=== PATIENT | female | born 1985 | race Caucasian/White ===

== ENCOUNTER 2024-10-11 05:52 | Inpatient (IN) ==
[~2024-10-11 05:52] MED LIST: Acetaminophen IV 1 GM/100ML 1,000 MG/100 ML BAG IV ONE; Bupivacaine 0.25% SDV 30 ML ONE; Gentamicin ADULT 40 MG/ML VIAL (2 ML VIAL = 80 MG) ONE; NS 0.45% 1000 ml BAG 1,000 ML IV SCH; Naloxone 0.4 mg VIAL 0.4 mg/ml 1 ml VIAL IV PRN; Ondansetron 4 mg VIAL 2 MG/ML 2 ml VIAL IV PRN; Povidone Iodine 5% OPTH 30 ML BTL ONE; ceFAZolin VIAL VIAL ONE
[2024-10-11] MEDS ORDERED: Heparin 5000 UNITS/ML 1 mL VIAL ONE ×2 (06:17→15:05)
[2024-10-11] MEDS ORDERED: Lidocaine 2.5%/Prilocain 2.5% 5 GM TUBE ONE (06:17)
[2024-10-11] MEDS ORDERED: Scopolamine 1 mg/72hr PATCH ONE (06:17)
[2024-10-11] MEDS ORDERED: Clindamycin 900 MG/50 **NS BAG 900 MG/50 ML BAG ONE (06:18)
[2024-10-11] MEDS: Scopolamine 1 mg/72hr PATCH TRANSDERM ONE (06:39)
[2024-10-11] MEDS: Lactated Ringers 1000 ml BAG 1,000 ML IV SCH (06:40)
[2024-10-11] MEDS: Buffered Lidocaine 1% SYRIN 1 ml INTRADERM ONE (06:40)
[2024-10-11 06:46] LABS: Rapid COVID-19 Molecular Undetected (Undetected)
[2024-10-11] MEDS ORDERED: Lidocaine 2% PF 5 ML VIAL ONE (06:56)
[2024-10-11] MEDS ORDERED: Propofol 10 MG/ML 20 ML BTL ONE ×3 (06:56→11:14)
[2024-10-11] MEDS ORDERED: Sevoflurane BOTTLE ONE ×2 (06:56→06:57)
[2024-10-11] MEDS ORDERED: Rocuronium 50 mg VIAL 10 mg/ml 5 ml VIAL (50 mg) ONE ×3 (07:02→11:46)
[2024-10-11] MEDS ORDERED: fentaNYL 250 mcg/5 ml 50 MCG/ML 5 ml VIAL (250 MCG) ONE ×2 (07:03→12:10)
[2024-10-11] MEDS ORDERED: Midazolam 5 mg/5 ml VIAL 1 mg/ml 5 ml VIAL (5 mg) ONE (07:07)
[2024-10-11] MEDS ORDERED: ISOSULFAN BLUE 1% 5 ML VIAL 10 MG/ML SUBCUT ONE (07:36)
[2024-10-11] MEDS ORDERED: Ondansetron 4 mg VIAL 2 MG/ML 2 ml VIAL ONE (08:16)
[2024-10-11] MEDS ORDERED: HYDROmorphone 0.5 MG/0.5 ML SYRINGE ONE ×2 (08:16)
[2024-10-11] MEDS ORDERED: CLINDAMYCIN 900 MG/50 ML ONE (10:59)
[2024-10-11] MEDS ORDERED: NS ONE (10:59)
[2024-10-11] MEDS ORDERED: Morphine 2 MG/ML SYRINGE IV PRN (12:00)
[2024-10-11] MEDS ORDERED: Benzocaine/Menthol LOZ PO PRN (12:00)
[2024-10-11] MEDS ORDERED: Acetaminophen IV 1 GM/100ML 1,000 MG/100 ML BAG IV ONE (14:32)
[2024-10-11] MEDS: Heparin 5000 UNITS/ML 1 mL VIAL SUBCUT SCH (15:08)
[2024-10-11] MEDS ORDERED: fentaNYL 100 mcg/2 ml 50 MCG/ML VIAL ONE (15:55)
[2024-10-11] MEDS: fentaNYL 100 mcg/2 ml 50 MCG/ML VIAL IV PRN (15:57)
[2024-10-11] MEDS: HYDROcodone/ACETAMIN 5/325 mg TAB PO PRN (18:19)
[2024-10-11] MEDS: Scopolamine 1 mg/72hr PATCH TRANSDERM SCH (21:04)
[2024-10-11] MEDS: Clindamycin 900 MG/D5W BAG 900 MG/50 ML BAG IVPB SCH (21:13)
[2024-10-12] MEDS: HYDROcodone/ACETAMIN 5/325 mg TAB PO PRN (03:28)
[2024-10-12 14:01] VITALS: BP 124/73
== END 2024-10-12 16:46 | disposition home or self-care (01) | DRG 362 ==
LOC: OR 05:52 → SSU 17:18
PROVIDERS: ADMIT Student in an Organized Health Care Education/Training Program; ATTEND Student in an Organized Health Care Education/Training Program